=== PATIENT | female | born 1955 | race Caucasian/White ===

== ENCOUNTER 2017-04-01 12:11 | Inpatient (IN) ==
[2017-04-01] MEDS ORDERED: ALBUTEROL/IPRATROPIUM 3 ML NEB RESP TX PRN (12:18)
[2017-04-01] MEDS ORDERED: DEXTROSE 50% 25 GM/50 ML VIAL IV PRN (12:18)
[2017-04-01] MEDS ORDERED: GLUCAGON 1 MG VIAL IM PRN (12:18)
[2017-04-01] MEDS ORDERED: ALBUTEROL/IPRATROPIUM 3 ML NEB RESP TX SCH (13:00)
[2017-04-01] MEDS: SODIUM CHLORIDE 0.45% 1,000 ML IV SCH (13:45)
[2017-04-01 14:47] LABS: Basophils % 0.3 % (0.0-0.8); Hematocrit 39.8 VOL% (35.7-47.0); Hemoglobin 14.1 GM/DL (12.0-16.0); Immature Granulocytes % 3.9 %; Immature Granulocytes Absolute 0.54 #; Lymphocytes # 0.9 10*3/uL (1.4-4.0); Lymphocytes % 6.4 % (21.3-54.2); Mean Corpuscular HGB Conc 35.4 GM/DL (32-36); Mean Corpuscular Hemoglobin 31 PG (27-34); Mean Corpuscular Volume 88.4 FL (87-102); Mean Platelet Volume 9.3 FL (9.6-12.0); Monocytes # 0.3 10*3/uL (0.11-0.8); Monocytes % 2.1 % (1.7-12.7); Neutrophils # 12.1 10*3/uL (1.4-7.4); Neutrophils % 87.3 % (38.7-73.9); Platelet Count 301 T/CUMM (130-400); Red Cell Distribution Width 12.8 % (9.3-17.3); White Blood Count 13.8 T/CUMM (4-12)
[2017-04-01 14:54] LABS: INR 1.7; PT Patient Result 17.4 SECS
[2017-04-01 15:24] LABS: Albumin 3.6 G/DL (3.4-5.0); Bilirubin,Total 0.8 MG/DL (0.2-1.0); Calcium 9.4 MG/DL (8.5-10.1); Magnesium 1.8 MG/DL (1.8-2.4); Osmolality,Calculated 279.2 MOS/KG (273-304); Thyroid Stimulating Hormone 0.206 uIU/ml (0.358-3.74); Total Protein 6.8 G/DL (6.4-8.3)
[2017-04-01] MEDS: MEROPENEM 1,000 MG in SYRINGE 1 EACH IV SCH ×2 (15:35→21:47)
[2017-04-01] MEDS: methylPREDNISolone SOD SUC 40 MG/1 ML VIAL IV SCH ×2 (15:35→21:44)
[2017-04-01] MEDS ORDERED: traMADol 50 MG TABLET PO PRN (16:30)
[2017-04-01] MEDS ORDERED: PROMETHAZINE 25 MG TABLET PO PRN (16:30)
[2017-04-01] MEDS: BENZONATATE 100 MG CAPSULE PO SCH ×2 (16:59→20:32)
[2017-04-01] MEDS: INSULIN REGULAR 100 UNIT/ML SUBCUT SCH ×2 (16:59→20:37)
[2017-04-01] MEDS: CALCIUM (CARBONATE)/VITAMIN D 500 MG-200 UNIT TABLET PO SCH (16:59)
[2017-04-01] MEDS: DICLOFENAC 1% GEL 100 GM TUBE TOP SCH ×2 (16:59→20:29)
[2017-04-01] MEDS ORDERED: IPRATROPIUM 500 MCG/2.5 ML NEB RESP TX SCH (17:00)
[2017-04-01] MEDS: ALBUTEROL/IPRATROPIUM 3 ML NEB RESP TX SCH (20:24)
[2017-04-01] MEDS: FLUTICASONE/SALMETEROL 500-50 DISKUS 14 DOSE INH SCH (20:29)
[2017-04-01] MEDS: MONTELUKAST 10 MG TABLET PO SCH (20:31)
[2017-04-01] MEDS: OMEGA 3 ACID ETHYL ESTERS 1 GM CAPSULE PO SCH (20:31)
[2017-04-01] MEDS: METOPROLOL TARTRATE 50 MG TABLET PO SCH (20:32)
[2017-04-02] MEDS: ALBUTEROL/IPRATROPIUM 3 ML NEB RESP TX SCH ×4 (01:21→19:22)
[2017-04-02 05:27] LABS: Basophils % 0.2 % (0.0-0.8); Hematocrit 36.6 VOL% (35.7-47.0); Hemoglobin 12.7 GM/DL (12.0-16.0); Immature Granulocytes % 3.4 %; Immature Granulocytes Absolute 0.37 #; Lymphocytes # 0.8 10*3/uL (1.4-4.0); Lymphocytes % 7.7 % (21.3-54.2); Mean Corpuscular HGB Conc 34.7 GM/DL (32-36); Mean Corpuscular Hemoglobin 31 PG (27-34); Mean Corpuscular Volume 89.1 FL (87-102); Mean Platelet Volume 9.3 FL (9.6-12.0); Monocytes # 0.2 10*3/uL (0.11-0.8); Monocytes % 2.2 % (1.7-12.7); Neutrophils # 9.5 10*3/uL (1.4-7.4); Neutrophils % 86.5 % (38.7-73.9); Platelet Count 231 T/CUMM (130-400); Red Blood Count 4.11 MC/CUMM (3.8-5.5); Red Cell Distribution Width 12.8 % (9.3-17.3)
[2017-04-02] MEDS: methylPREDNISolone SOD SUC 40 MG/1 ML VIAL IV SCH ×3 (05:28→22:31)
[2017-04-02] MEDS: MEROPENEM 1,000 MG in SYRINGE 1 EACH IV SCH ×2 (05:31→14:31)
[2017-04-02] MEDS: SODIUM CHLORIDE 0.45% 1,000 ML IV SCH (05:46)
[2017-04-02 05:49] LABS: Calcium 9.4 MG/DL (8.5-10.1); Magnesium 2.1 MG/DL (1.8-2.4); Osmolality,Calculated 283.1 MOS/KG (273-304); Potassium 3.9 MMOL/L (3.5-5.1)
[2017-04-02 05:57] LABS: INR 2.4
[2017-04-02 06:22] LABS: Apearance,Urine CLEAR (Clear); Bacteria,Urine Occasional /HPF (Few); Bilirubin,Urine Negative (Negative); Blood, Urine Negative (Negative); Glucose,Urine (UA) >=500 mg/dL (Negative); Ketones,Urine Negative (Negative); Mucus,Urine Occasional /LPF (Occasional); Nitrite,Urine Negative (Negative); Protein,Urine Negative; RBC,Urine <1 /HPF (0-4); Squamous Epithelial Cell,Urine Occasional /HPF (0-10); Urine Color Yellow (Yellow); Urine Specific Gravity 1.007 (1.001-1.035); Urine Urobilinogen < 2.0 EU/DL (0.2-1.0); WBC,Urine 1 /HPF (0-6)
[2017-04-02] MEDS: PANTOPRAZOLE 40 MG TABLET PO SCH ×2 (08:38→20:23)
[2017-04-02] MEDS: MULTIVITAMIN (CENTRUM) TABLET PO SCH (08:38)
[2017-04-02] MEDS: POLYCARBOPHIL 625 MG TABLET PO SCH (08:38)
[2017-04-02] MEDS: ATORVASTATIN 20 MG TABLET PO SCH (08:38)
[2017-04-02] MEDS: BENZONATATE 100 MG CAPSULE PO SCH ×3 (08:38→20:23)
[2017-04-02] MEDS: METOPROLOL TARTRATE 50 MG TABLET PO SCH ×2 (08:39→20:23)
[2017-04-02] MEDS: INSULIN REGULAR 100 UNIT/ML SUBCUT SCH ×4 (08:39→20:22)
[2017-04-02] MEDS: CALCIUM (CARBONATE)/VITAMIN D 500 MG-200 UNIT TABLET PO SCH (08:39)
[2017-04-02] MEDS: OMEGA 3 ACID ETHYL ESTERS 1 GM CAPSULE PO SCH ×2 (08:39→20:23)
[2017-04-02] MEDS: FLUTICASONE/SALMETEROL 500-50 DISKUS 14 DOSE INH SCH ×2 (08:41→20:24)
[2017-04-02] MEDS: MONTELUKAST 10 MG TABLET PO SCH ×2 (08:41→20:23)
[2017-04-02] MEDS: FLUTICASONE 50 MCG NASAL SPRAY 16 GM BOTTLE BOTH NARES SCH (08:41)
[2017-04-02] MEDS: DICLOFENAC 1% GEL 100 GM TUBE TOP SCH ×4 (08:41→20:24)
[2017-04-02] MEDS: THEOPHYLLINE ER 300 MG TABLET PO SCH (17:52)
[2017-04-02] MEDS ORDERED: WARFARIN 2.5 MG TABLET PO SCH (18:00)
[2017-04-02] MEDS: MAGNESIUM CHLORIDE 64 MG TABLET PO SCH (20:23)
[2017-04-02] MEDS: NITROGLYCERIN SL 0.4 MG TABLET SL PRN ×2 (20:56→21:01)
[2017-04-02] MEDS: ALUMINUM/MAGNES/SIMETH MAX STR 30 ML UDCUP PO PRN (21:15)
[2017-04-02] MEDS ORDERED: DILTIAZEM 50 MG/10 ML VIAL IV ONE (21:27)
[2017-04-02] MEDS: DILTIAZEM INJ 100 MG in SODIUM CHLORIDE 0.9% 100 ML IV SCH (22:02)
[2017-04-02 22:12] LABS: Troponin I Only < 0.015 NG/ML (0.00-0.045)
[2017-04-03] MEDS: ALBUTEROL/IPRATROPIUM 3 ML NEB RESP TX SCH ×4 (01:13→20:10)
[2017-04-03] MEDS: MEROPENEM 1,000 MG in SYRINGE 1 EACH IV SCH (02:04)
[2017-04-03] MEDS: SODIUM CHLORIDE 0.45% 1,000 ML IV SCH ×2 (02:21→16:49)
[2017-04-03] MEDS: ALUMINUM/MAGNES/SIMETH MAX STR 30 ML UDCUP PO PRN ×2 (03:15→10:22)
[2017-04-03 05:03] LABS: INR 3.3
[2017-04-03 05:06] LABS: PT Patient Result 33.8 SECS
[2017-04-03] MEDS: methylPREDNISolone SOD SUC 40 MG/1 ML VIAL IV SCH ×3 (05:54→22:14)
[2017-04-03] MEDS: DILTIAZEM INJ 100 MG in SODIUM CHLORIDE 0.9% 100 ML IV SCH (05:57)
[2017-04-03] MEDS: POLYCARBOPHIL 625 MG TABLET PO SCH (08:55)
[2017-04-03] MEDS: INSULIN REGULAR 100 UNIT/ML SUBCUT SCH ×4 (08:55→22:14)
[2017-04-03] MEDS: CALCIUM (CARBONATE)/VITAMIN D 500 MG-200 UNIT TABLET PO SCH (08:56)
[2017-04-03] MEDS: BENZONATATE 100 MG CAPSULE PO SCH ×3 (08:56→20:51)
[2017-04-03] MEDS: THEOPHYLLINE ER 300 MG TABLET PO SCH ×2 (08:56→16:49)
[2017-04-03] MEDS: OMEGA 3 ACID ETHYL ESTERS 1 GM CAPSULE PO SCH ×2 (08:56→20:54)
[2017-04-03] MEDS: METOPROLOL TARTRATE 50 MG TABLET PO SCH ×3 (08:56→20:51)
[2017-04-03] MEDS: MAGNESIUM CHLORIDE 64 MG TABLET PO SCH ×2 (08:57→20:52)
[2017-04-03] MEDS: FLUTICASONE/SALMETEROL 500-50 DISKUS 14 DOSE INH SCH ×3 (08:57→20:50)
[2017-04-03] MEDS: FLUTICASONE 50 MCG NASAL SPRAY 16 GM BOTTLE BOTH NARES SCH (08:57)
[2017-04-03] MEDS: MONTELUKAST 10 MG TABLET PO SCH ×2 (08:57→20:51)
[2017-04-03] MEDS: PANTOPRAZOLE 40 MG TABLET PO SCH ×2 (08:57→20:52)
[2017-04-03] MEDS: MULTIVITAMIN (CENTRUM) TABLET PO SCH (08:57)
[2017-04-03] MEDS: ATORVASTATIN 20 MG TABLET PO SCH (08:57)
[2017-04-03] MEDS: DICLOFENAC 1% GEL 100 GM TUBE TOP SCH ×4 (08:58→22:19)
[2017-04-03] MEDS: MEROPENEM 1,000 MG in SODIUM CHLORIDE 0.9% 50 ML IV SCH ×2 (10:23→17:03)
[2017-04-03] MEDS ORDERED: DILTIAZEM CD 240 MG CAPSULE PO SCH (11:00)
[2017-04-03] MEDS ORDERED: MAGNESIUM SULF RIDER 2 GM in PREMIX 1 EACH IV PRN (11:01)
[2017-04-03] MEDS ORDERED: POTASSIUM CHLORIDE RIDER 10 MEQ in PREMIX 1 EACH IV PRN (11:01)
[2017-04-03] MEDS: DILTIAZEM CD 240 MG CAPSULE PO SCH (22:13)
[2017-04-03] MEDS: ASCORBIC ACID 500 MG TABLET PO SCH (22:15)
[2017-04-04] MEDS: ALBUTEROL/IPRATROPIUM 3 ML NEB RESP TX SCH ×4 (01:28→18:55)
[2017-04-04] MEDS: MEROPENEM 1,000 MG in SODIUM CHLORIDE 0.9% 50 ML IV SCH ×3 (02:07→21:34)
[2017-04-04 04:07] LABS: INR 2.9
[2017-04-04 04:26] LABS: PT Patient Result 29.4 SECS
[2017-04-04 04:46] LABS: Calcium 8.6 MG/DL (8.5-10.1); Osmolality,Calculated 294.3 MOS/KG (273-304); Potassium 4.1 MMOL/L (3.5-5.1)
[2017-04-04] MEDS: methylPREDNISolone SOD SUC 40 MG/1 ML VIAL IV SCH ×3 (05:41→22:00)
[2017-04-04] MEDS ORDERED: diphenhydrAMINE CAP 25 MG CAPSULE PO ONE (06:00)
[2017-04-04] MEDS ORDERED: DIAZEPAM 5 MG TABLET PO ONE (06:00)
[2017-04-04] MEDS: INSULIN REGULAR 100 UNIT/ML SUBCUT SCH ×5 (07:29→21:43)
[2017-04-04] MEDS: CALCIUM (CARBONATE)/VITAMIN D 500 MG-200 UNIT TABLET PO SCH (09:33)
[2017-04-04] MEDS: POLYCARBOPHIL 625 MG TABLET PO SCH (09:34)
[2017-04-04] MEDS: THEOPHYLLINE ER 300 MG TABLET PO SCH ×2 (09:35→18:00)
[2017-04-04] MEDS: MAGNESIUM CHLORIDE 64 MG TABLET PO SCH ×2 (09:36→21:47)
[2017-04-04] MEDS: DILTIAZEM CD 240 MG CAPSULE PO SCH ×2 (09:36→21:44)
[2017-04-04] MEDS: OMEGA 3 ACID ETHYL ESTERS 1 GM CAPSULE PO SCH ×2 (09:37→21:44)
[2017-04-04] MEDS: ATORVASTATIN 20 MG TABLET PO SCH (09:37)
[2017-04-04] MEDS: BENZONATATE 100 MG CAPSULE PO SCH ×3 (09:38→21:46)
[2017-04-04] MEDS: MULTIVITAMIN (CENTRUM) TABLET PO SCH (09:38)
[2017-04-04] MEDS: MONTELUKAST 10 MG TABLET PO SCH ×2 (09:39→21:46)
[2017-04-04] MEDS: METOPROLOL TARTRATE 50 MG TABLET PO SCH ×2 (09:39→21:45)
[2017-04-04] MEDS: ASCORBIC ACID 500 MG TABLET PO SCH ×2 (09:39→21:46)
[2017-04-04] MEDS: PANTOPRAZOLE 40 MG TABLET PO SCH ×2 (09:40→21:46)
[2017-04-04] MEDS: DICLOFENAC 1% GEL 100 GM TUBE TOP SCH ×4 (09:40→22:01)
[2017-04-04] MEDS: FLUTICASONE/SALMETEROL 500-50 DISKUS 14 DOSE INH SCH ×2 (09:41→21:50)
[2017-04-04] MEDS: FLUTICASONE 50 MCG NASAL SPRAY 16 GM BOTTLE BOTH NARES SCH (09:42)
[2017-04-04] MEDS ORDERED: PHYTONADIONE 5 MG TABLET PO ONE (15:30)
[2017-04-04] MEDS: ASPIRIN EC 81 MG TABLET PO SCH (16:04)
[2017-04-04] MEDS: SODIUM CHLORIDE 0.45% 1,000 ML IV SCH (16:05)
[2017-04-05] MEDS: ALBUTEROL/IPRATROPIUM 3 ML NEB RESP TX SCH ×4 (00:14→20:26)
[2017-04-05] MEDS: methylPREDNISolone SOD SUC 40 MG/1 ML VIAL IV SCH ×3 (06:07→21:02)
[2017-04-05] MEDS: MEROPENEM 1,000 MG in SODIUM CHLORIDE 0.9% 50 ML IV SCH ×2 (06:10→14:13)
[2017-04-05 06:19] LABS: Calcium 8.7 MG/DL (8.5-10.1); Magnesium 2.7 MG/DL (1.8-2.4); Osmolality,Calculated 295.5 MOS/KG (273-304); Potassium 5.2 MMOL/L (3.5-5.1)
[2017-04-05] MEDS: SODIUM CHLORIDE 0.45% 1,000 ML IV SCH (07:27)
[2017-04-05] MEDS ORDERED: DIAZEPAM 5 MG TABLET ONE (08:35)
[2017-04-05] MEDS ORDERED: diphenhydrAMINE CAP 25 MG CAPSULE ONE (08:35)
[2017-04-05] MEDS ORDERED: ASPIRIN 325 MG TABLET ONE (08:36)
[2017-04-05] MEDS ORDERED: ASPIRIN CHEW 81 MG TABLET PO ONE (08:40)
[2017-04-05] MEDS: MONTELUKAST 10 MG TABLET PO SCH ×2 (08:42→20:50)
[2017-04-05] MEDS: METOPROLOL TARTRATE 50 MG TABLET PO SCH ×2 (08:42→20:50)
[2017-04-05] MEDS: ATORVASTATIN 20 MG TABLET PO SCH (08:42)
[2017-04-05] MEDS: MAGNESIUM CHLORIDE 64 MG TABLET PO SCH ×3 (08:42→20:51)
[2017-04-05] MEDS: THEOPHYLLINE ER 300 MG TABLET PO SCH ×2 (08:42→18:29)
[2017-04-05] MEDS: DILTIAZEM CD 240 MG CAPSULE PO SCH ×2 (08:43→20:48)
[2017-04-05] MEDS: PANTOPRAZOLE 40 MG TABLET PO SCH ×2 (08:44→20:49)
[2017-04-05] MEDS: INSULIN REGULAR 100 UNIT/ML SUBCUT SCH ×3 (08:44→18:30)
[2017-04-05] MEDS: FLUTICASONE/SALMETEROL 500-50 DISKUS 14 DOSE INH SCH (08:49)
[2017-04-05] MEDS ORDERED: LIDOCAINE 1% 20 ML VIAL ONE (08:51)
[2017-04-05] MEDS ORDERED: MIDAZOLAM 2 MG/2 ML VIAL ONE (09:02)
[2017-04-05] MEDS ORDERED: MEPERIDINE 25 MG/1 ML VIAL ONE (09:02)
[2017-04-05] MEDS ORDERED: HYDROmorphone 2 MG/1 ML VIAL IV PRN (10:06)
[2017-04-05] MEDS ORDERED: ACETAMINOPHEN/CODEINE 300-30 MG TABLET PO PRN (10:06)
[2017-04-05] MEDS ORDERED: ACETAMINOPHEN 325 MG TABLET PO PRN (10:06)
[2017-04-05] MEDS ORDERED: SODIUM CHLORIDE 0.45% 1,000 ML IV SCH (12:30)
[2017-04-05] MEDS: ASPIRIN EC 81 MG TABLET PO SCH (13:27)
[2017-04-05] MEDS: POLYCARBOPHIL 625 MG TABLET PO SCH (14:00)
[2017-04-05] MEDS: MULTIVITAMIN (CENTRUM) TABLET PO SCH (14:00)
[2017-04-05] MEDS: ASCORBIC ACID 500 MG TABLET PO SCH ×2 (14:00→20:49)
[2017-04-05] MEDS: BENZONATATE 100 MG CAPSULE PO SCH ×3 (14:01→20:49)
[2017-04-05] MEDS: OMEGA 3 ACID ETHYL ESTERS 1 GM CAPSULE PO SCH ×2 (14:01→20:49)
[2017-04-05] MEDS: CALCIUM (CARBONATE)/VITAMIN D 500 MG-200 UNIT TABLET PO SCH (14:04)
[2017-04-05] MEDS: DICLOFENAC 1% GEL 100 GM TUBE TOP SCH ×3 (14:06→21:57)
[2017-04-05] MEDS: FLUTICASONE 50 MCG NASAL SPRAY 16 GM BOTTLE BOTH NARES SCH (14:16)
[2017-04-05] MEDS: WARFARIN 2.5 MG TABLET PO SCH (18:30)
[2017-04-06] MEDS: FLUTICASONE/SALMETEROL 500-50 DISKUS 14 DOSE INH SCH ×3 (00:47→21:25)
[2017-04-06] MEDS: MEROPENEM 1,000 MG in SODIUM CHLORIDE 0.9% 50 ML IV SCH ×4 (00:47→23:42)
[2017-04-06] MEDS: INSULIN REGULAR 100 UNIT/ML SUBCUT SCH ×5 (00:50→21:24)
[2017-04-06] MEDS: ALBUTEROL/IPRATROPIUM 3 ML NEB RESP TX SCH ×4 (01:18→20:08)
[2017-04-06 06:17] LABS: Basophils % 0.3 % (0.0-0.8); Hematocrit 34.3 VOL% (35.7-47.0); Hemoglobin 11.7 GM/DL (12.0-16.0); Immature Granulocytes % 5.7 %; Immature Granulocytes Absolute 0.72 #; Lymphocytes # 0.4 10*3/uL (1.4-4.0); Lymphocytes % 3.4 % (21.3-54.2); Mean Corpuscular HGB Conc 34.1 GM/DL (32-36); Mean Corpuscular Hemoglobin 31 PG (27-34); Mean Corpuscular Volume 90.5 FL (87-102); Mean Platelet Volume 9.1 FL (9.6-12.0); Monocytes # 0.4 10*3/uL (0.11-0.8); Monocytes % 3.4 % (1.7-12.7); NRBC # 0.04 10*3/uL; Neutrophils % 87.2 % (38.7-73.9); Platelet Count 240 T/CUMM (130-400); Red Blood Count 3.79 MC/CUMM (3.8-5.5); White Blood Count 12.6 T/CUMM (4-12)
[2017-04-06 06:26] LABS: INR 1.2; PT Patient Result 12.5 SECS
[2017-04-06 06:44] LABS: Calcium 8.8 MG/DL (8.5-10.1); Magnesium 2.7 MG/DL (1.8-2.4); Osmolality,Calculated 294.5 MOS/KG (273-304); Potassium 4.4 MMOL/L (3.5-5.1)
[2017-04-06 06:53] LABS: Band Neutrophils 2 % (0-10); Lymphocytes 5 % (20-55); Metamyelocytes 1 %; Segmented Neutrophils 88 % (50-85); Total Cells Counted 100
[2017-04-06 06:54] LABS: Microcytosis Slight
[2017-04-06] MEDS: methylPREDNISolone SOD SUC 40 MG/1 ML VIAL IV SCH ×2 (06:57→17:23)
[2017-04-06] MEDS: THEOPHYLLINE ER 300 MG TABLET PO SCH (09:50)
[2017-04-06] MEDS: CALCIUM (CARBONATE)/VITAMIN D 500 MG-200 UNIT TABLET PO SCH (09:50)
[2017-04-06] MEDS: OMEGA 3 ACID ETHYL ESTERS 1 GM CAPSULE PO SCH ×2 (09:51→21:23)
[2017-04-06] MEDS: BENZONATATE 100 MG CAPSULE PO SCH ×3 (09:51→21:24)
[2017-04-06] MEDS: MULTIVITAMIN (CENTRUM) TABLET PO SCH (09:51)
[2017-04-06] MEDS: POLYCARBOPHIL 625 MG TABLET PO SCH (09:51)
[2017-04-06] MEDS: METOPROLOL TARTRATE 50 MG TABLET PO SCH ×2 (09:51→21:24)
[2017-04-06] MEDS: DILTIAZEM CD 240 MG CAPSULE PO SCH ×2 (09:51→21:24)
[2017-04-06] MEDS: ASCORBIC ACID 500 MG TABLET PO SCH ×2 (09:51→21:23)
[2017-04-06] MEDS: ASPIRIN EC 81 MG TABLET PO SCH (09:52)
[2017-04-06] MEDS: PANTOPRAZOLE 40 MG TABLET PO SCH ×2 (09:52→21:24)
[2017-04-06] MEDS: ATORVASTATIN 20 MG TABLET PO SCH (09:52)
[2017-04-06] MEDS: MONTELUKAST 10 MG TABLET PO SCH ×2 (09:52→21:24)
[2017-04-06] MEDS: FLUTICASONE 50 MCG NASAL SPRAY 16 GM BOTTLE BOTH NARES SCH (09:52)
[2017-04-06] MEDS: DICLOFENAC 1% GEL 100 GM TUBE TOP SCH ×4 (09:53→21:27)
[2017-04-06] MEDS: MAGNESIUM CHLORIDE 64 MG TABLET PO SCH ×2 (09:53→21:24)
[2017-04-06] MEDS: ENOXAPARIN 40 MG/0.4 ML SYRINGE SUBCUT SCH (13:38)
[2017-04-06] MEDS ORDERED: DIGOXIN 0.5 MG/2 ML AMP IV ONE (14:18)
[2017-04-06] MEDS: WARFARIN 2.5 MG TABLET PO SCH (17:22)
[2017-04-06 19:36] LABS: Cotinine < 3.0 ng/mL (<3.0); Nicotine < 3.0 ng/mL (<3.0)
[2017-04-06] MEDS ORDERED: ATORVASTATIN 20 MG TABLET PO SCH (21:00)
[2017-04-07] MEDS: ALBUTEROL/IPRATROPIUM 3 ML NEB RESP TX SCH ×4 (00:37→19:00)
[2017-04-07 04:42] LABS: INR 1.1; PT Patient Result 11.9 SECS
[2017-04-07] MEDS: methylPREDNISolone SOD SUC 40 MG/1 ML VIAL IV SCH ×2 (05:44→18:31)
[2017-04-07] MEDS: MEROPENEM 1,000 MG in SODIUM CHLORIDE 0.9% 50 ML IV SCH ×3 (06:12→22:43)
[2017-04-07] MEDS: ATORVASTATIN 20 MG TABLET PO SCH (09:23)
[2017-04-07] MEDS: INSULIN REGULAR 100 UNIT/ML SUBCUT SCH ×4 (09:23→20:16)
[2017-04-07] MEDS: BENZONATATE 100 MG CAPSULE PO SCH ×3 (09:24→20:16)
[2017-04-07] MEDS: ASCORBIC ACID 500 MG TABLET PO SCH ×2 (09:24→20:16)
[2017-04-07] MEDS: OMEGA 3 ACID ETHYL ESTERS 1 GM CAPSULE PO SCH ×2 (09:24→20:16)
[2017-04-07] MEDS: POLYCARBOPHIL 625 MG TABLET PO SCH (09:24)
[2017-04-07] MEDS: FUROSEMIDE 40 MG TABLET PO SCH (09:24)
[2017-04-07] MEDS: DILTIAZEM CD 240 MG CAPSULE PO SCH ×2 (09:24→20:15)
[2017-04-07] MEDS: ASPIRIN EC 81 MG TABLET PO SCH (09:24)
[2017-04-07] MEDS: MULTIVITAMIN (CENTRUM) TABLET PO SCH (09:24)
[2017-04-07] MEDS: CALCIUM (CARBONATE)/VITAMIN D 500 MG-200 UNIT TABLET PO SCH (09:24)
[2017-04-07] MEDS: METOPROLOL TARTRATE 50 MG TABLET PO SCH ×2 (09:25→20:15)
[2017-04-07] MEDS: FLUTICASONE/SALMETEROL 500-50 DISKUS 14 DOSE INH SCH ×2 (09:25→20:17)
[2017-04-07] MEDS: MONTELUKAST 10 MG TABLET PO SCH ×2 (09:25→20:16)
[2017-04-07] MEDS: FLUTICASONE 50 MCG NASAL SPRAY 16 GM BOTTLE BOTH NARES SCH (09:25)
[2017-04-07] MEDS: PANTOPRAZOLE 40 MG TABLET PO SCH ×2 (09:25→20:16)
[2017-04-07] MEDS: MAGNESIUM CHLORIDE 64 MG TABLET PO SCH ×2 (09:26→20:15)
[2017-04-07] MEDS: DICLOFENAC 1% GEL 100 GM TUBE TOP SCH ×4 (09:26→20:17)
[2017-04-07] MEDS: ENOXAPARIN 40 MG/0.4 ML SYRINGE SUBCUT SCH (12:41)
[2017-04-07] MEDS ORDERED: ENOXAPARIN 100 MG/ML SYRINGE SUBCUT ONE (18:08)
[2017-04-07] MEDS: WARFARIN 2.5 MG TABLET PO SCH (18:31)
[2017-04-07] MEDS: ENOXAPARIN 100 MG/ML SYRINGE SUBCUT SCH (18:31)
[2017-04-08] MEDS: ALBUTEROL/IPRATROPIUM 3 ML NEB RESP TX SCH ×4 (01:22→21:05)
[2017-04-08 05:07] LABS: Basophils % 0.3 % (0.0-0.8); Hematocrit 32.5 VOL% (35.7-47.0); Hemoglobin 11.2 GM/DL (12.0-16.0); Immature Granulocytes % 7.5 %; Immature Granulocytes Absolute 0.95 #; Lymphocytes # 0.6 10*3/uL (1.4-4.0); Lymphocytes % 5.1 % (21.3-54.2); Mean Corpuscular HGB Conc 34.5 GM/DL (32-36); Mean Corpuscular Hemoglobin 32 PG (27-34); Mean Corpuscular Volume 91.5 FL (87-102); Mean Platelet Volume 9.1 FL (9.6-12.0); Monocytes # 0.6 10*3/uL (0.11-0.8); Monocytes % 4.6 % (1.7-12.7); NRBC # 0.11 10*3/uL; Neutrophils # 10.4 10*3/uL (1.4-7.4); Neutrophils % 82.5 % (38.7-73.9); Platelet Count 209 T/CUMM (130-400); Red Blood Count 3.55 MC/CUMM (3.8-5.5); Red Cell Distribution Width 13.2 % (9.3-17.3); White Blood Count 12.6 T/CUMM (4-12)
[2017-04-08] MEDS: methylPREDNISolone SOD SUC 40 MG/1 ML VIAL IV SCH ×2 (05:16→18:24)
[2017-04-08] MEDS: ENOXAPARIN 100 MG/ML SYRINGE SUBCUT SCH ×2 (05:16→18:26)
[2017-04-08 05:39] LABS: Calcium 8.9 MG/DL (8.5-10.1); Magnesium 2.9 MG/DL (1.8-2.4); Osmolality,Calculated 293.4 MOS/KG (273-304); Potassium 4.7 MMOL/L (3.5-5.1)
[2017-04-08 05:40] LABS: INR 1.1
[2017-04-08] MEDS: MEROPENEM 1,000 MG in SODIUM CHLORIDE 0.9% 50 ML IV SCH (06:06)
[2017-04-08 06:10] LABS: Band Neutrophils 1 % (0-10); Hypochromasia 1+; Lymphocytes 8 % (20-55); Metamyelocytes 2 %; Microcytosis Slight; Nucleated Red Blood Cells 4 (0-5); Segmented Neutrophils 81 % (50-85); Total Cells Counted 100
[2017-04-08 06:11] LABS: Platelet Estimate Normal
[2017-04-08] MEDS: DILTIAZEM CD 240 MG CAPSULE PO SCH ×2 (09:52→21:16)
[2017-04-08] MEDS: POLYCARBOPHIL 625 MG TABLET PO SCH (09:53)
[2017-04-08] MEDS: FUROSEMIDE 40 MG TABLET PO SCH (09:53)
[2017-04-08] MEDS: MULTIVITAMIN (CENTRUM) TABLET PO SCH (09:53)
[2017-04-08] MEDS: BENZONATATE 100 MG CAPSULE PO SCH ×3 (09:56→21:17)
[2017-04-08] MEDS: MONTELUKAST 10 MG TABLET PO SCH ×2 (09:57→21:18)
[2017-04-08] MEDS: METOPROLOL TARTRATE 50 MG TABLET PO SCH ×2 (09:57→21:18)
[2017-04-08] MEDS: ASCORBIC ACID 500 MG TABLET PO SCH ×2 (09:57→21:18)
[2017-04-08] MEDS: CALCIUM (CARBONATE)/VITAMIN D 500 MG-200 UNIT TABLET PO SCH (09:58)
[2017-04-08] MEDS: ASPIRIN EC 81 MG TABLET PO SCH (09:58)
[2017-04-08] MEDS: ATORVASTATIN 20 MG TABLET PO SCH (09:58)
[2017-04-08] MEDS: PANTOPRAZOLE 40 MG TABLET PO SCH ×2 (09:58→21:19)
[2017-04-08] MEDS: FLUTICASONE/SALMETEROL 500-50 DISKUS 14 DOSE INH SCH ×2 (09:59→21:20)
[2017-04-08] MEDS: FLUTICASONE 50 MCG NASAL SPRAY 16 GM BOTTLE BOTH NARES SCH (09:59)
[2017-04-08] MEDS: INSULIN REGULAR 100 UNIT/ML SUBCUT SCH ×4 (09:59→21:19)
[2017-04-08] MEDS: OMEGA 3 ACID ETHYL ESTERS 1 GM CAPSULE PO SCH ×2 (09:59→21:16)
[2017-04-08] MEDS: MAGNESIUM CHLORIDE 64 MG TABLET PO SCH ×2 (10:01→21:25)
[2017-04-08] MEDS: DICLOFENAC 1% GEL 100 GM TUBE TOP SCH ×4 (10:06→21:25)
[2017-04-08] MEDS: CLORAZEPATE 3.75 MG TABLET PO SCH ×3 (15:55→21:17)
[2017-04-08] MEDS ORDERED: WARFARIN 5 MG TABLET PO SCH (18:00)
[2017-04-08] MEDS: FLECAINIDE 100 MG TABLET PO SCH (21:17)
[2017-04-09] MEDS: ALBUTEROL/IPRATROPIUM 3 ML NEB RESP TX SCH ×4 (00:43→19:55)
[2017-04-09 03:50] LABS: INR 1.2; PT Patient Result 12.7 SECS
[2017-04-09 04:13] LABS: Calcium 8.4 MG/DL (8.5-10.1); Magnesium 2.4 MG/DL (1.8-2.4); Osmolality,Calculated 286.8 MOS/KG (273-304); Potassium 5.2 MMOL/L (3.5-5.1)
[2017-04-09] MEDS: ENOXAPARIN 100 MG/ML SYRINGE SUBCUT SCH ×2 (06:22→18:21)
[2017-04-09] MEDS: methylPREDNISolone SOD SUC 40 MG/1 ML VIAL IV SCH ×2 (06:22→18:19)
[2017-04-09] MEDS: OMEGA 3 ACID ETHYL ESTERS 1 GM CAPSULE PO SCH ×2 (10:52→21:22)
[2017-04-09] MEDS: DILTIAZEM CD 240 MG CAPSULE PO SCH ×2 (10:54→21:21)
[2017-04-09] MEDS: POLYCARBOPHIL 625 MG TABLET PO SCH (10:54)
[2017-04-09] MEDS: MULTIVITAMIN (CENTRUM) TABLET PO SCH (10:55)
[2017-04-09] MEDS: MAGNESIUM CHLORIDE 64 MG TABLET PO SCH ×2 (10:55→21:21)
[2017-04-09] MEDS: CALCIUM (CARBONATE)/VITAMIN D 500 MG-200 UNIT TABLET PO SCH (10:56)
[2017-04-09] MEDS: METOPROLOL TARTRATE 50 MG TABLET PO SCH ×2 (10:56→21:22)
[2017-04-09] MEDS: CLORAZEPATE 3.75 MG TABLET PO SCH ×3 (10:56→21:20)
[2017-04-09] MEDS: FLECAINIDE 100 MG TABLET PO SCH ×2 (10:56→21:21)
[2017-04-09] MEDS: ASPIRIN EC 81 MG TABLET PO SCH (10:57)
[2017-04-09] MEDS: BENZONATATE 100 MG CAPSULE PO SCH ×3 (10:57→21:21)
[2017-04-09] MEDS: ASCORBIC ACID 500 MG TABLET PO SCH ×2 (10:58→21:21)
[2017-04-09] MEDS: PANTOPRAZOLE 40 MG TABLET PO SCH ×2 (10:58→21:23)
[2017-04-09] MEDS: ATORVASTATIN 20 MG TABLET PO SCH (10:58)
[2017-04-09] MEDS: INSULIN REGULAR 100 UNIT/ML SUBCUT SCH ×4 (10:59→21:24)
[2017-04-09] MEDS: FLUTICASONE 50 MCG NASAL SPRAY 16 GM BOTTLE BOTH NARES SCH (10:59)
[2017-04-09] MEDS: FUROSEMIDE 40 MG TABLET PO SCH (10:59)
[2017-04-09] MEDS: FLUTICASONE/SALMETEROL 500-50 DISKUS 14 DOSE INH SCH ×2 (10:59→21:10)
[2017-04-09] MEDS: DICLOFENAC 1% GEL 100 GM TUBE TOP SCH ×4 (11:05→21:29)
[2017-04-09] MEDS: MONTELUKAST 10 MG TABLET PO SCH ×2 (11:05→21:22)
[2017-04-09] MEDS: WARFARIN 5 MG TABLET PO SCH (18:18)
[2017-04-10] MEDS: ALBUTEROL/IPRATROPIUM 3 ML NEB RESP TX SCH ×4 (00:47→20:12)
[2017-04-10] MEDS: ENOXAPARIN 100 MG/ML SYRINGE SUBCUT SCH ×2 (06:11→18:20)
[2017-04-10] MEDS: methylPREDNISolone SOD SUC 40 MG/1 ML VIAL IV SCH (06:11)
[2017-04-10 06:24] LABS: INR 1.3; PT Patient Result 13.1 SECS
[2017-04-10 10:33] LABS: Calcium 8.5 MG/DL (8.5-10.1); Osmolality,Calculated 289.5 MOS/KG (273-304); Potassium 4.2 MMOL/L (3.5-5.1)
[2017-04-10] MEDS: DILTIAZEM CD 240 MG CAPSULE PO SCH ×2 (10:43→20:58)
[2017-04-10] MEDS: FLECAINIDE 100 MG TABLET PO SCH ×2 (10:44→20:58)
[2017-04-10] MEDS: CALCIUM (CARBONATE)/VITAMIN D 500 MG-200 UNIT TABLET PO SCH (10:44)
[2017-04-10] MEDS: PANTOPRAZOLE 40 MG TABLET PO SCH ×2 (10:45→20:59)
[2017-04-10] MEDS: BENZONATATE 100 MG CAPSULE PO SCH ×3 (10:45→20:59)
[2017-04-10] MEDS: ASPIRIN EC 81 MG TABLET PO SCH (10:45)
[2017-04-10] MEDS: MONTELUKAST 10 MG TABLET PO SCH ×2 (10:46→20:58)
[2017-04-10] MEDS: OMEGA 3 ACID ETHYL ESTERS 1 GM CAPSULE PO SCH ×2 (10:47→20:59)
[2017-04-10] MEDS: ASCORBIC ACID 500 MG TABLET PO SCH ×2 (10:47→20:58)
[2017-04-10] MEDS: POLYCARBOPHIL 625 MG TABLET PO SCH (10:47)
[2017-04-10] MEDS: FUROSEMIDE 40 MG TABLET PO SCH (10:48)
[2017-04-10] MEDS: METOPROLOL TARTRATE 50 MG TABLET PO SCH ×2 (10:48→20:58)
[2017-04-10] MEDS: ATORVASTATIN 20 MG TABLET PO SCH (10:49)
[2017-04-10] MEDS: MULTIVITAMIN (CENTRUM) TABLET PO SCH (10:53)
[2017-04-10] MEDS: predniSONE 10 MG TABLET PO SCH (10:54)
[2017-04-10] MEDS: MAGNESIUM CHLORIDE 64 MG TABLET PO SCH ×2 (10:54→20:58)
[2017-04-10] MEDS: CLORAZEPATE 3.75 MG TABLET PO SCH ×3 (10:55→20:58)
[2017-04-10] MEDS: DICLOFENAC 1% GEL 100 GM TUBE TOP SCH ×3 (10:55→21:02)
[2017-04-10] MEDS: FLUTICASONE 50 MCG NASAL SPRAY 16 GM BOTTLE BOTH NARES SCH (10:56)
[2017-04-10] MEDS: INSULIN REGULAR 100 UNIT/ML SUBCUT SCH ×4 (10:56→21:13)
[2017-04-10] MEDS: FLUTICASONE/SALMETEROL 500-50 DISKUS 14 DOSE INH SCH ×2 (13:27→21:02)
[2017-04-10] MEDS: WARFARIN 5 MG TABLET PO SCH (18:26)
[2017-04-11] MEDS: ALBUTEROL/IPRATROPIUM 3 ML NEB RESP TX SCH ×4 (01:24→19:10)
[2017-04-11 05:54] LABS: INR 1.7; PT Patient Result 17.4 SECS
[2017-04-11 06:11] LABS: Calcium 8.6 MG/DL (8.5-10.1); Magnesium 2.4 MG/DL (1.8-2.4); Osmolality,Calculated 288.5 MOS/KG (273-304); Potassium 4.6 MMOL/L (3.5-5.1)
[2017-04-11] MEDS: ENOXAPARIN 100 MG/ML SYRINGE SUBCUT SCH ×2 (06:43→17:51)
[2017-04-11] MEDS: FUROSEMIDE 40 MG TABLET PO SCH (09:00)
[2017-04-11] MEDS: PANTOPRAZOLE 40 MG TABLET PO SCH ×2 (09:00→21:48)
[2017-04-11] MEDS: ASPIRIN EC 81 MG TABLET PO SCH (09:00)
[2017-04-11] MEDS: METOPROLOL TARTRATE 50 MG TABLET PO SCH (09:00)
[2017-04-11] MEDS: FLECAINIDE 100 MG TABLET PO SCH ×2 (09:01→21:47)
[2017-04-11] MEDS: OMEGA 3 ACID ETHYL ESTERS 1 GM CAPSULE PO SCH ×2 (09:01→21:46)
[2017-04-11] MEDS: BENZONATATE 100 MG CAPSULE PO SCH ×3 (09:01→21:47)
[2017-04-11] MEDS: CALCIUM (CARBONATE)/VITAMIN D 500 MG-200 UNIT TABLET PO SCH (09:01)
[2017-04-11] MEDS: CLORAZEPATE 3.75 MG TABLET PO SCH ×3 (09:01→21:48)
[2017-04-11] MEDS: DILTIAZEM CD 240 MG CAPSULE PO SCH ×2 (09:01→21:46)
[2017-04-11] MEDS: ASCORBIC ACID 500 MG TABLET PO SCH ×2 (09:01→21:47)
[2017-04-11] MEDS: MAGNESIUM CHLORIDE 64 MG TABLET PO SCH ×2 (09:01→21:49)
[2017-04-11] MEDS: predniSONE 10 MG TABLET PO SCH (09:01)
[2017-04-11] MEDS: MONTELUKAST 10 MG TABLET PO SCH ×2 (09:01→21:48)
[2017-04-11] MEDS: ATORVASTATIN 20 MG TABLET PO SCH (09:01)
[2017-04-11] MEDS: POLYCARBOPHIL 625 MG TABLET PO SCH (09:01)
[2017-04-11] MEDS: INSULIN REGULAR 100 UNIT/ML SUBCUT SCH ×4 (09:06→21:48)
[2017-04-11] MEDS: DICLOFENAC 1% GEL 100 GM TUBE TOP SCH ×4 (09:06→21:49)
[2017-04-11] MEDS: FLUTICASONE/SALMETEROL 500-50 DISKUS 14 DOSE INH SCH ×2 (09:10→21:49)
[2017-04-11] MEDS: FLUTICASONE 50 MCG NASAL SPRAY 16 GM BOTTLE BOTH NARES SCH (09:10)
[2017-04-11] MEDS: MULTIVITAMIN (CENTRUM) TABLET PO SCH (09:10)
[2017-04-11] MEDS: WARFARIN 5 MG TABLET PO SCH (17:51)
[2017-04-11] MEDS: METOPROLOL SUCCINATE XL 50 MG TABLET PO SCH (21:47)
[2017-04-12] MEDS: ALBUTEROL/IPRATROPIUM 3 ML NEB RESP TX SCH ×3 (00:40→13:39)
[2017-04-12] MEDS: ENOXAPARIN 100 MG/ML SYRINGE SUBCUT SCH (05:53)
[2017-04-12] MEDS: INSULIN REGULAR 100 UNIT/ML SUBCUT SCH ×2 (08:21→12:25)
[2017-04-12] MEDS: CLORAZEPATE 3.75 MG TABLET PO SCH (09:05)
[2017-04-12] MEDS: METOPROLOL SUCCINATE XL 50 MG TABLET PO SCH (09:05)
[2017-04-12] MEDS: MULTIVITAMIN (CENTRUM) TABLET PO SCH (09:05)
[2017-04-12] MEDS: CALCIUM (CARBONATE)/VITAMIN D 500 MG-200 UNIT TABLET PO SCH (09:05)
[2017-04-12] MEDS: ASCORBIC ACID 500 MG TABLET PO SCH (09:05)
[2017-04-12] MEDS: DILTIAZEM CD 240 MG CAPSULE PO SCH (09:05)
[2017-04-12] MEDS: FLECAINIDE 100 MG TABLET PO SCH (09:05)
[2017-04-12] MEDS: BENZONATATE 100 MG CAPSULE PO SCH (09:05)
[2017-04-12] MEDS: PANTOPRAZOLE 40 MG TABLET PO SCH (09:05)
[2017-04-12] MEDS: POLYCARBOPHIL 625 MG TABLET PO SCH (09:05)
[2017-04-12] MEDS: FUROSEMIDE 40 MG TABLET PO SCH (09:05)
[2017-04-12] MEDS: ASPIRIN EC 81 MG TABLET PO SCH (09:05)
[2017-04-12] MEDS: MONTELUKAST 10 MG TABLET PO SCH (09:05)
[2017-04-12] MEDS: predniSONE 10 MG TABLET PO SCH (09:05)
[2017-04-12] MEDS: ATORVASTATIN 20 MG TABLET PO SCH (09:05)
[2017-04-12] MEDS: OMEGA 3 ACID ETHYL ESTERS 1 GM CAPSULE PO SCH (09:05)
[2017-04-12] MEDS: MAGNESIUM CHLORIDE 64 MG TABLET PO SCH (09:05)
[2017-04-12] MEDS: DICLOFENAC 1% GEL 100 GM TUBE TOP SCH ×2 (09:09→12:26)
[2017-04-12] MEDS: FLUTICASONE 50 MCG NASAL SPRAY 16 GM BOTTLE BOTH NARES SCH (09:12)
[2017-04-12] MEDS: FLUTICASONE/SALMETEROL 500-50 DISKUS 14 DOSE INH SCH (09:12)
[2017-04-12 09:19] LABS: INR 3.6
[2017-04-12 09:21] LABS: PT Patient Result 35.9 SECS
[2017-04-12 12:30] VITALS: BP 127/70
[2017-04-12] MEDS ORDERED: INFLUENZA VIRUS VACCINE 0.5 ML SYRINGE IM ONE (12:49)
== END 2017-04-12 15:47 | disposition home or self-care (01) | DRG 202 ==
LOC: N.5E 13:28 → N.TELES 04-02 21:58
PROVIDERS: ADMIT Internal Medicine Pulmonary Disease; ATTEND Internal Medicine Pulmonary Disease
PROC: CLCCHCL (ICD-10-PCS; 2017-04-05 10:45)

== ENCOUNTER 2020-08-22 19:27 | Inpatient (IN) ==
[2020-08-22 19:52] LABS: Basophils % 0.4 % (0.0-0.8); Hemoglobin 12.2 GM/DL (12.0-16.0); Immature Granulocytes % 5.6 %; Lymphocytes # 2.1 10*3/uL (1.4-4.0); Lymphocytes % 19.6 % (21.3-54.2); Mean Corpuscular HGB Conc 30.5 GM/DL (32-36); Mean Corpuscular Volume 102.6 FL (87-102); Mean Platelet Volume 8.9 FL (9.6-12.0); Monocytes % 5.7 % (1.7-12.7); Neutrophils % 68.7 % (38.7-73.9); Platelet Count 207 T/CUMM (130-400); White Blood Count 10.7 T/CUMM (4-12)
[2020-08-22 19:56] LABS: Bacteria,Urine Occasional /HPF (Few); Bilirubin,Urine Negative (Negative); Blood, Urine Negative (Negative); Glucose,Urine (UA) Negative (Negative); Hyaline Casts,Urine 42 /LPF (0-3); Ketones,Urine Negative (Negative); Mucus,Urine Occasional /LPF (Occasional); Nitrite,Urine Negative (Negative); Protein,Urine Negative; RBC,Urine <1 /HPF (0-4); Squamous Epithelial Cell,Urine Occasional /HPF (0-10); Urine Appearance Slightly Hazy (Clear); Urine Color Amber (Yellow); Urine Specific Gravity 1.024 (1.001-1.035); Urine Urobilinogen < 2.0 EU/DL (0.2-1.0); WBC,Urine 1 /HPF (0-6)
[2020-08-22 20:02] LABS: INR 1.2; PT Patient Result 12.5 SECS (9.8-11.9); Partial Thromboplastin Time 21.7 SECS (23.9-33.8)
[2020-08-22 20:16] LABS: Albumin 3.2 G/DL (3.4-5.0); Bilirubin,Total 0.5 MG/DL (0.2-1.0); Calcium 8.8 MG/DL (8.5-10.1); Osmolality,Calculated 290.3 MOS/KG (273-304); Total Protein 6.1 G/DL (6.4-8.2)
[2020-08-22 20:23] LABS: ABG Base Excess 0.1 MMOL/L (-2.5-2.5); ABG HCO3 24.4 MMOL/L (20-26); ABG Oxygen Saturation 94.9 % (95-100); ABG PCO2 46.4 MM HG (35-48); ABG PH 7.357 (7.35-7.45); ABG PO2 77.1 MM HG (80-95); Allen Test Positive
[2020-08-22 20:50] LABS: Lymphocytes 22 % (20-55); Segmented Neutrophils 75 % (50-85); Total Cells Counted 100
[2020-08-22] MEDS ORDERED: SODIUM CHLORIDE 0.9% 1,000 ML IV STA (21:34)
[2020-08-22] MEDS ORDERED: cefTRIAXone 1,000 MG in SODIUM CHLORIDE 0.9% 100 ML IV STA (21:35)
[2020-08-22] MEDS ORDERED: DEXTROSE 50% 25 GM/50 ML VIAL IV PRN ×2 (21:57)
[2020-08-22] MEDS ORDERED: GLUCAGON 1 MG VIAL IM PRN ×2 (21:57)
[2020-08-22] MEDS ORDERED: guaiFENesin/DM ER 600-30 MG TABLET PO PRN (21:57)
[2020-08-22] MEDS ORDERED: MORPHINE 4 MG/1 ML VIAL IV PRN (21:57)
[2020-08-22] MEDS ORDERED: hydrALAZINE 20 MG/1 ML VIAL IV PRN (21:57)
[2020-08-22] MEDS ORDERED: ZALEPLON 5 MG CAPSULE PO PRN (21:57)
[2020-08-22] MEDS ORDERED: diphenhydrAMINE CAP 25 MG CAPSULE PO PRN (21:57)
[2020-08-22] MEDS ORDERED: ACETAMINOPHEN 325 MG TABLET PO PRN (21:57)
[2020-08-22] MEDS ORDERED: ALUMINUM/MAGNES/SIMETH MAX STR 30 ML UDCUP PO PRN (21:57)
[2020-08-22] MEDS ORDERED: ONDANSETRON 4 MG/2 ML VIAL IV PRN (21:57)
[2020-08-22] MEDS ORDERED: NICOTINE 21 MG/24 HR PATCH TRANSDERM PRN (21:57)
[2020-08-22] MEDS ORDERED: DOCUSATE SODIUM 100 MG CAPSULE PO PRN (21:57)
[2020-08-23] MEDS: SODIUM CHLORIDE 0.9% 1,000 ML IV SCH ×3 (00:08→23:16)
[2020-08-23] MEDS: AZITHROMYCIN INJ 500 MG in SODIUM CHLORIDE 0.9% 250 ML IV SCH ×2 (00:08→23:16)
[2020-08-23] MEDS: ALBUTEROL/IPRATROPIUM 3 ML NEB RESP TX SCH ×7 (00:28→23:53)
[2020-08-23 05:12] LABS: Basophils % 0.4 % (0.0-0.8); Hematocrit 37.1 VOL% (35.7-47.0); Hemoglobin 11.5 GM/DL (12.0-16.0); Immature Granulocytes % 3.7 %; Immature Granulocytes Absolute 0.37 #; Lymphocytes # 2.2 10*3/uL (1.4-4.0); Lymphocytes % 21.6 % (21.3-54.2); Mean Corpuscular Volume 99.5 FL (87-102); Monocytes % 7.1 % (1.7-12.7); Neutrophils % 67.2 % (38.7-73.9); Platelet Count 176 T/CUMM (130-400); Red Blood Count 3.73 MC/CUMM (3.8-5.5); Red Cell Distribution Width 13.9 % (9.3-17.3)
[2020-08-23 05:28] LABS: Albumin 2.7 G/DL (3.4-5.0); Bilirubin,Total 0.5 MG/DL (0.2-1.0); Calcium 8.2 MG/DL (8.5-10.1); Osmolality,Calculated 287.3 MOS/KG (273-304); Total Protein 5.3 G/DL (6.4-8.2)
[2020-08-23 06:02] LABS: Hepatitis B Core IgM Quant 0.08 Index; Hepatitis B Surface Ag Quant < 0.10 Index; Hepatitis B Surface Ag Result Non-Reactive (NonReactive); Hepatitis C Virus Ab Quant 0.05 Index; Hepatitis C Virus Ab Result Non-Reactive (NonReactive)
[2020-08-23] MEDS ORDERED: MELATONIN 3 MG TABLET PO PRN (06:43)
[2020-08-23] MEDS: INSULIN LISPRO 100 UNIT/ML SUBCUT SCH ×4 (08:40→20:21)
[2020-08-23] MEDS: MONTELUKAST 10 MG TABLET PO SCH (09:23)
[2020-08-23] MEDS: DILTIAZEM CD 240 MG CAPSULE PO SCH ×2 (09:23→20:20)
[2020-08-23] MEDS: PREGABALIN 50 MG CAPSULE PO SCH ×2 (09:23→20:20)
[2020-08-23] MEDS: PANTOPRAZOLE 40 MG TABLET PO SCH (09:23)
[2020-08-23] MEDS: ENOXAPARIN 30 MG/0.3 ML SYRINGE SUBCUT SCH (09:24)
[2020-08-23] MEDS: POTASSIUM CHLORIDE 10 MEQ TABLET PO SCH (09:56)
[2020-08-23] MEDS: FLUTICASONE/SALMETEROL 500-50 DISKUS 14 DOSE INH SCH ×2 (09:56→20:20)
[2020-08-23] MEDS: WARFARIN 7.5 MG TABLET PO SCH (17:24)
[2020-08-23] MEDS: cefTRIAXone 1,000 MG in SYRINGE 1 EACH IV SCH (20:19)
[2020-08-24] MEDS: ALBUTEROL/IPRATROPIUM 3 ML NEB RESP TX SCH ×5 (03:56→19:21)
[2020-08-24 05:25] LABS: Basophils % 0.2 % (0.0-0.8); Hematocrit 33.6 VOL% (35.7-47.0); Hemoglobin 10.6 GM/DL (12.0-16.0); Immature Granulocytes % 4.1 %; Immature Granulocytes Absolute 0.27 #; Lymphocytes # 1.4 10*3/uL (1.4-4.0); Lymphocytes % 21.3 % (21.3-54.2); Mean Corpuscular HGB Conc 31.5 GM/DL (32-36); Mean Corpuscular Volume 99.7 FL (87-102); Mean Platelet Volume 8.9 FL (9.6-12.0); Monocytes % 8.6 % (1.7-12.7); Neutrophils % 65.8 % (38.7-73.9); Platelet Count 136 T/CUMM (130-400); Red Blood Count 3.37 MC/CUMM (3.8-5.5); Red Cell Distribution Width 13.8 % (9.3-17.3); White Blood Count 6.5 T/CUMM (4-12)
[2020-08-24 05:40] LABS: Calcium 7.7 MG/DL (8.5-10.1); Potassium 4.1 MMOL/L (3.5-5.1)
[2020-08-24 05:53] LABS: INR 1.1; PT Patient Result 11.3 SECS (9.8-11.9)
[2020-08-24] MEDS: INSULIN LISPRO 100 UNIT/ML SUBCUT SCH ×4 (07:28→20:39)
[2020-08-24] MEDS: ENOXAPARIN 30 MG/0.3 ML SYRINGE SUBCUT SCH (08:53)
[2020-08-24] MEDS: POTASSIUM CHLORIDE 10 MEQ TABLET PO SCH (08:53)
[2020-08-24] MEDS: PREGABALIN 50 MG CAPSULE PO SCH ×2 (08:54→20:37)
[2020-08-24] MEDS: MONTELUKAST 10 MG TABLET PO SCH (08:54)
[2020-08-24] MEDS: PANTOPRAZOLE 40 MG TABLET PO SCH (08:54)
[2020-08-24] MEDS: FLUTICASONE/SALMETEROL 500-50 DISKUS 14 DOSE INH SCH ×2 (08:54→20:39)
[2020-08-24] MEDS: DILTIAZEM CD 240 MG CAPSULE PO SCH ×2 (08:54→20:37)
[2020-08-24] MEDS: SODIUM CHLORIDE 0.9% 1,000 ML IV SCH (11:33)
[2020-08-24] MEDS: WARFARIN 7.5 MG TABLET PO SCH (17:00)
[2020-08-24] MEDS: cefTRIAXone 1,000 MG in SYRINGE 1 EACH IV SCH (20:38)
[2020-08-24] MEDS: AZITHROMYCIN INJ 500 MG in SODIUM CHLORIDE 0.9% 250 ML IV SCH (22:35)
[2020-08-25] MEDS: SODIUM CHLORIDE 0.9% 1,000 ML IV SCH ×2 (00:18→21:11)
[2020-08-25] MEDS: ALBUTEROL/IPRATROPIUM 3 ML NEB RESP TX SCH ×6 (00:27→19:35)
[2020-08-25] MEDS ORDERED: ALBUTEROL/IPRATROPIUM 3 ML NEB RESP TX ONE (04:35)
[2020-08-25 05:19] LABS: INR 1.3; PT Patient Result 13.5 SECS (9.8-11.9)
[2020-08-25 05:33] LABS: Calcium 7.8 MG/DL (8.5-10.1); Potassium 3.9 MMOL/L (3.5-5.1)
[2020-08-25] MEDS: INSULIN LISPRO 100 UNIT/ML SUBCUT SCH ×4 (08:05→21:14)
[2020-08-25] MEDS: POTASSIUM CHLORIDE 10 MEQ TABLET PO SCH (09:29)
[2020-08-25] MEDS: PREGABALIN 50 MG CAPSULE PO SCH ×2 (09:29→21:03)
[2020-08-25] MEDS: MONTELUKAST 10 MG TABLET PO SCH (09:29)
[2020-08-25] MEDS: DILTIAZEM CD 240 MG CAPSULE PO SCH ×2 (09:30→21:03)
[2020-08-25] MEDS: ENOXAPARIN 40 MG/0.4 ML SYRINGE SUBCUT SCH (09:34)
[2020-08-25] MEDS: FLUTICASONE/SALMETEROL 500-50 DISKUS 14 DOSE INH SCH ×2 (09:34→21:07)
[2020-08-25] MEDS: PANTOPRAZOLE 40 MG TABLET PO SCH (09:36)
[2020-08-25] MEDS: AZITHROMYCIN 250 MG TABLET PO SCH (12:36)
[2020-08-25] MEDS ORDERED: WARFARIN 5 MG TABLET PO SCH (18:00)
[2020-08-25] MEDS: cefTRIAXone 1,000 MG in SYRINGE 1 EACH IV SCH (21:03)
[2020-08-26] MEDS: SODIUM CHLORIDE 0.9% 1,000 ML IV SCH (00:02)
[2020-08-26] MEDS: ALBUTEROL/IPRATROPIUM 3 ML NEB RESP TX SCH ×6 (00:31→19:34)
[2020-08-26 06:06] LABS: Basophils % 0.2 % (0.0-0.8); Hematocrit 33.2 VOL% (35.7-47.0); Hemoglobin 10.4 GM/DL (12.0-16.0); Immature Granulocytes % 2.3 %; Lymphocytes # 1.1 10*3/uL (1.4-4.0); Lymphocytes % 25.6 % (21.3-54.2); Mean Corpuscular HGB Conc 31.3 GM/DL (32-36); Mean Corpuscular Volume 99.1 FL (87-102); Mean Platelet Volume 8.8 FL (9.6-12.0); Neutrophils % 61.9 % (38.7-73.9); Platelet Count 162 T/CUMM (130-400); Red Blood Count 3.35 MC/CUMM (3.8-5.5); Red Cell Distribution Width 13.8 % (9.3-17.3); White Blood Count 4.4 T/CUMM (4-12)
[2020-08-26 06:21] LABS: INR 1.5; PT Patient Result 15.6 SECS (9.8-11.9)
[2020-08-26 06:36] LABS: Calcium 8.3 MG/DL (8.5-10.1); Osmolality,Calculated 276.3 MOS/KG (273-304)
[2020-08-26] MEDS: AZITHROMYCIN 250 MG TABLET PO SCH (09:36)
[2020-08-26] MEDS: PREGABALIN 50 MG CAPSULE PO SCH ×2 (09:37→21:33)
[2020-08-26] MEDS: MONTELUKAST 10 MG TABLET PO SCH (09:37)
[2020-08-26] MEDS: FLUTICASONE/SALMETEROL 500-50 DISKUS 14 DOSE INH SCH ×2 (09:37→21:34)
[2020-08-26] MEDS: DILTIAZEM CD 240 MG CAPSULE PO SCH ×2 (09:38→21:33)
[2020-08-26] MEDS: PANTOPRAZOLE 40 MG TABLET PO SCH (09:39)
[2020-08-26] MEDS: POTASSIUM CHLORIDE 10 MEQ TABLET PO SCH (09:39)
[2020-08-26] MEDS: ENOXAPARIN 40 MG/0.4 ML SYRINGE SUBCUT SCH (09:41)
[2020-08-26] MEDS: INSULIN LISPRO 100 UNIT/ML SUBCUT SCH ×4 (09:58→21:34)
[2020-08-26] MEDS: WARFARIN 7.5 MG TABLET PO SCH (18:44)
[2020-08-26] MEDS: cefTRIAXone 1,000 MG in SYRINGE 1 EACH IV SCH (21:33)
[2020-08-27] MEDS: ALBUTEROL/IPRATROPIUM 3 ML NEB RESP TX SCH ×3 (00:19→07:12)
[2020-08-27] MEDS: SODIUM CHLORIDE 0.9% 1,000 ML IV SCH ×2 (01:18→05:08)
[2020-08-27 05:49] LABS: INR 1.6; PT Patient Result 16.7 SECS (9.8-11.9)
[2020-08-27] MEDS: INSULIN LISPRO 100 UNIT/ML SUBCUT SCH ×2 (08:24→12:40)
[2020-08-27] MEDS: DILTIAZEM CD 240 MG CAPSULE PO SCH (08:24)
[2020-08-27] MEDS: POTASSIUM CHLORIDE 10 MEQ TABLET PO SCH (08:24)
[2020-08-27] MEDS: ENOXAPARIN 40 MG/0.4 ML SYRINGE SUBCUT SCH (08:24)
[2020-08-27] MEDS: PANTOPRAZOLE 40 MG TABLET PO SCH (08:24)
[2020-08-27] MEDS: PREGABALIN 50 MG CAPSULE PO SCH (08:24)
[2020-08-27] MEDS: MONTELUKAST 10 MG TABLET PO SCH (08:24)
[2020-08-27] MEDS: FLUTICASONE/SALMETEROL 500-50 DISKUS 14 DOSE INH SCH (08:25)
[2020-08-27] MEDS ORDERED: AMOXICILLIN/CLAV 875 MG TABLET PO SCH (09:30)
[2020-08-27 12:06] VITALS: BP 129/65
== END 2020-08-27 14:10 | disposition home or self-care (01) | DRG 682 ==
LOC: EDUNIT# → EDBD → N.ED 19:27 → N.EDINP 21:57 → SUATTDRO 21:57 → N.EDINP 22:59 → N.3E 23:08
PROVIDERS: ADMIT Internal Medicine Geriatric Medicine; ATTEND Internal Medicine